=== PATIENT | female | born 1960 | race Caucasian/White ===

== ENCOUNTER 2016-04-30 17:48 | Emergency (ER) | payer OTHER ==
[~2016-04-30] VITALS: Ht 167.6 cm; Wt 64.1 kg
[~2016-04-30 17:48] MED LIST: ATENOLOL (*) 2525 MG PO; METFORMIN; SIMV40TA5 PO; ZAN150T; ZES20T PO
[2016-04-30 17:51] VITALS: BP 173/87; PULSE 56; RESP 16; O2SAT 98
[2016-04-30] MEDS ORDERED: ESTR0.5T PO (17:58)
[2016-04-30] MEDS ORDERED: PROG100C6 PO (17:58)
[2016-04-30 20:04] VITALS: BP 146/79; PULSE 56; RESP 16; O2SAT 98
--- NOTE | 2016-04-30 21:33 | ED.REPORT ---
HPI-Eye Problem Date of Service Apr 30, 2016 ED Provider: Christian Rodriguez MD Patient is a 55 year old female with a history of diabetes mellitus and hypertension who presents to the ED with redness and swelling of her left eye that began 5 days ago. Patient states that she became concerned because the area became hard today and the redness has spread down to her face. Patient has been seen by her PCP, Dr. Alexander, who believes that her symptoms are due to a blocked tear duct. Dr. Alexander prescribed her antibiotic drops for her eyes and she was prescribed Keflex at [facility] yesterday. Patient has taken 4x doses of Keflex so far. Patient's eye has not yet been cultured. Patient denies a history of MSRA. 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 She denies vision loss or fever. Nursing Notes Stated Complaint: SWOLLEN L EYE Chief Complaint: Eye Nursing Notes Reviewed: Yes Allergies: Coded Allergies: meloxicam (Verified Allergy, Severe, severe htn, 04/30/16) Scheduled Atenolol-Expunged Drug, Do Not Renew! (Atenolol-Expunged Drug, Do Not Renew!) 25 Mg Tab 50 MG PO BID Estradiol (Estradiol) 0.5 Mg Tablet 0.5 MG PO DAILY Progesterone,Micronized (Progesterone) 100 Mg Capsule 100 MG PO DAILY General Time Seen by MD: 21:32 Chief Complaint Left eye affected, Redness, Swelling Hx Obtained From: Patient Arrived By: Walk-in Sudden in Onset?: No Onset Occurred: 5 days ago Symptom Duration: Since onset Progression Since Onset: Gradually worsening Location: : Eye left Severity: Current: Mild Severity: Maximum: Mild Recent Healthcare: No recent doctor visit, No recent hospitalization Similar Sx Previous: No Past Medical History Past Medical History Reports: Diabetes mellitus, Hypertension Past Surgical History gastric bypass Smoking History Unknown if Ever Smoker Social History Other Social History: Good social support, Local resident Ambulatory Status Independent Review of Systems Review of Systems Note: +left eye swelling Constitutional: Denies: Chills, Fever Eyes: Reports: Discharge left, Redness left, Denies: Visual loss bilateral Complete sys rev & neg: except as marked. Physical Exam Initial Vital Signs Vital Signs (First) Date Time Temp Pulse Resp B/P Pulse Ox O2 Delivery O2 Flow Rate FiO2 04/30/16 17:51 37.1 56 16 173/87 98 Room Air Initial VS: Reviewed, Vital signs abnormal Extremities: Vascular intact, Neuro intact, No swelling Psychiatric: Mood/affect normal, Behavior normal, Normal thought content Head / Eyes: Normocephalic, PERRL, EOMI Left eye: indurated left lower eye lid, with swelling and erythema. Small amount of [place]. Erythema is spreading down her left cheek. General/Constitutional: Awake, Alert, No acute distress ENT: Airway patent, Pharynx NL Skin: Warm, Dry Neurologic: Oriented X3, Speech NL, No motor deficits, No sensory deficits Neck: Supple, Non-tender Respiratory / Chest: No respiratory distress, No stridor Cardiovascular: Heart rate NL, Regular rhythm Re-Eval/Medical Decision Source of Hx: Old records Counseled Regarding: Diagnosis, Need for follow-up, When/why to return to ED Discharge & Departure Primary Impression: Hordeolum of left eye Additional Impression: Cellulitis, face Disposition: Home Discharge Condition All VS Reviewed: Yes Condition: Stable Patient Instructions: Cellulitis (ED) Additional Instructions: You were given Rocephin (ceftriaxone) 2 g IV in the emergency room. Continue the Keflex (cephalexin). Continue the warm compresses. Follow-up Sunday with Dr. Cunningham. Referrals: Rubi Alexander MD (PCP) Scribe Attestation Portions of this note were transcribed by Mindy Jewell. I, Dr. Rodriguez personally performed the history, physical exam and medical decision-making; I reviewed and confirmed the accuracy of the information in the transcribed note. Signed by: Veronica Harry, 04/30/2016 0000 copies to: Rubi Alexander MD, Christian Xiong MD Apr 30, 2016 21:33 Mindy Jewell Apr 30, 2016 21:42
[2016-04-30] MEDS ORDERED: cefTRIAXone Inj 2,000 MG in Dextrose 5% Minibag Plus 50 ML IV ONE (21:40)
[2016-04-30] MEDS ORDERED: 0.9% Sodium Chloride 1,000 ML IV ONE (22:18)
[2016-04-30] MEDS ORDERED: Ondansetron 2 mg/mL 2 mL Inj IV PRN (22:20)
[2016-04-30] MEDS ORDERED: HYDROmorphone 1 mg/mL Inj IVPUSH PRN (22:20)
[2016-04-30 22:37] VITALS: BP 146/79; PULSE 56; RESP 16; O2SAT 98
[2016-05-01] MEDS ORDERED: Vancomycin Dose per Pharmacist XX SCH (08:30)
== END 2016-04-30 22:37 | disposition home or self-care (01) ==
LOC: SED 17:48
DX: H00.016 Hordeolum externum left eye, unspecified eyelid (principal); L03.211 Cellulitis of face; E11.9 Type 2 diabetes mellitus without complications; I10 Essential (primary) hypertension; Z88.8 Allergy status to other drugs, medicaments and biological substances
CPT/HCPCS: 87070; 87205; 96374; 99284; J0696